=== PATIENT | male | born 1995 | race Caucasian/White ===

== ENCOUNTER 2022-09-08 18:07 | Emergency (ER) | payer OTHER, SELFPAY ==
[2022-09-08 19:33] VITALS: BP 120/67; PULSE 71; RESP 16; TEMP 36.2; O2SAT 100
--- NOTE | 2022-09-08 20:20 | ED.URI ---
HPI - URI/Sore Throat General Chief Complaint: Upper Respiratory Infection Stated Complaint: Cough Source: patient Mode of arrival: ambulatory Limitations: no limitations History of Present Illness HPI Narrative: 26-year-old male presents to [facility] complains of cough, runny nose and intermittent wheezing for the past 2 weeks. The patient is a smoker. Patient has been taking [id number] ibuprofen with minimal relief. Patient reports that he did have a fever for the 1st 1-2 days but that has since resolved. Patient son is currently ill with cold-like symptoms MD elicited complaint: rhinorrhea Onset (ago): week(s) (2) Able to tolerate fluids by mouth: Yes Exacerbating factors: nothing Context: sick contacts Treatments prior to arrival: ibuprofen Related Data Allergies Allergy/AdvReac Type Severity Reaction Status Date / Time No Known Allergies Allergy Unknown Unverified 12/13/19 08:47 No Known Allergies Allergy Uncoded 12/13/19 08:47 Review of Systems Constitutional: Constitutional: Denies chills, Denies fatigue, Denies fever(s) and Denies weakness ENT: Denies dizziness, Denies nasal congestion and Denies sore throat Respiratory: Respiratory: Reports cough, Denies dyspnea and Denies wheezing Gastrointestinal: Gastrointestinal: Denies diarrhea, Denies nausea and Denies vomiting Integumentary/Breasts: Skin/Breast: Denies rash Neurologic: Denies dizziness, Denies syncope and Denies headache(s) PMFSH Comments At time of signature, I agree with nursing past medical, surgical, social and family history. There is no relevant family history pertinent to the presenting complaint. Exam Const: General: healthy appearing and no acute distress Nutritional Appearance: well nourished Orientation/consciousness: patient oriented x3 Limitations: no limitations HENMT: Head: normal to inspection Ears: external ears normal and TM's normal bilaterally Mouth: Yes Normal oral and palatal mucosa present and Yes moist mucous membranes Throat: posterior oropharynx normal and uvula midline Eyes: Conjunctivae: conjunctivae normal Neck: Neck: normal visual inspection Resp: Effort & Inspection: normal respiratory effort Auscultation: no crackles, no rales, no rhonchi and wheezes scattered wheezes Cardio: Rate: regular rate Rhythm: regular rhythm Heart sounds: no murmurs Skin: General skin exam: normal color Rashes: no rashes Neuro: Speech: normal speech Psych: Affect: normal affect Attitude: cooperative Course Course Level of Care: [facility] Visit Vital Signs Vital signs: Vital Signs Temperature 36.2 C L 09/08/22 19:33 Pulse Rate 71 09/08/22 19:33 Respiratory Rate 16 09/08/22 19:33 Blood Pressure 120/67 09/08/22 19:33 Pulse Oximetry 100 09/08/22 19:33 Oxygen Delivery Room Air 09/08/22 19:33 Temperature 36.2 C L 09/08/22 19:33 Pulse Rate 71 09/08/22 19:33 Respiratory Rate 16 09/08/22 19:33 Blood Pressure 120/67 09/08/22 19:33 Pulse Oximetry 100 09/08/22 19:33 Oxygen Delivery Room Air 09/08/22 19:33 MDM - URI/Sore Throat MDM Narrative Medical decision making narrative: Instructed patient to quit smoking. Patient agrees to take medications as prescribed. Encouraged patient to follow-up with primary care provider if symptoms do not improve and to proceed to the emergency room if symptoms worsen Differential Diagnosis Differential diagnosis: Likely otitis media, sinusitis and viral infection Critical Care Time Critical Care Time Critical Care Time: No Discharge Plan Discharge Clinical Impression: Upper respiratory infection Patient Disposition: Home, Self-Care Condition: Stable Instructions: Antibiotic Form, Upper Respiratory Infection (ED) Additional Instructions: Rest Increase fluids Take medications as prescribed Follow-up with primary care provider if symptoms not improved Proceed to the emergency room if symptoms worsen Pat[place]
== END 2022-09-08 20:28 | disposition home or self-care (01) ==
PROVIDERS: Emergency Provider Nurse Practitioner Family
DX: J06.9 Acute upper respiratory infection, unspecified (principal); F17.210 Nicotine dependence, cigarettes, uncomplicated
CPT/HCPCS: 99213; G0463